=== PATIENT | male | born 1955 | race Caucasian/White ===

== ENCOUNTER 2020-04-25 10:24 | Inpatient (IN) | payer OTHER ==
[~2020-04-25] VITALS: Ht 182.9 cm; Wt 130.0 kg
[2020-04-25] MEDS ORDERED: TRAZ50TA66 PO (10:55)
[2020-04-25] MEDS ORDERED: OMEG-14 PO (10:55)
[2020-04-25] MEDS ORDERED: ISOS30TA8 PO (10:55)
[2020-04-25] MEDS ORDERED: EZET10TA70 PO (10:55)
[2020-04-25] MEDS ORDERED: PRAV40TA2 PO (10:55)
[2020-04-25] MEDS ORDERED: NITR0.4T28 SL (10:55)
[2020-04-25] MEDS ORDERED: RABE20TA18 PO (10:55)
[2020-04-25] MEDS ORDERED: HYDR25CA PO (10:55)
[2020-04-25] MEDS ORDERED: AMLO10TA4 PO (10:55)
[2020-04-25] MEDS ORDERED: LIRA0.6P2 SQ (10:55)
[2020-04-25] MEDS ORDERED: ASPI-496 PO (10:55)
[2020-04-25] MEDS ORDERED: MULT-658 PO (10:55)
[2020-04-25] MEDS ORDERED: ZALE10CA PO (10:55)
[2020-04-25] MEDS ORDERED: LISI1TAB20 PO (10:55)
[2020-04-25] MEDS ORDERED: METO-95 PO (10:55)
--- NOTE | 2020-04-25 10:55 | NUR ---
PT FROM [facility] FOR SUBLINGUAL ABSCESS THAT NEEDS TO BE DRAINED. PT REPORTS SEVER PAIN WITH SWALLOWING SO PT AVOIDS SWALLOWING AND HAS BEEN USING SUCTION TO CLEAR SECRETIONS. PT MEDICATED WITH ANTIBIOTICS AND STEROIDS SILK BRUSHER. PT HAS NOT BEEN TAKING HOME MEDICATIONS DUE TO PAIN FOR ONE DAY.
[2020-04-25] MEDS ORDERED: ONDANSETRON 2MG/ML, 2ML ONE ×2 (11:31→12:28)
[2020-04-25] MEDS ORDERED: METOPROLOL 1 MG/ML, 5ML ONE (11:31)
[2020-04-25] MEDS ORDERED: SUGAMMADEX 200 MG/2 ML IVPush ONE (11:31)
[2020-04-25] MEDS ORDERED: ROCURONIUM 10 MG/ML,10ML ONE (11:31)
[2020-04-25] MEDS ORDERED: PROPOFOL 10 MG/ML, 20ML ONE (11:31)
[2020-04-25] MEDS ORDERED: DEXAMETHASONE 4 MG/ML, 1ML ONE (11:31)
--- NOTE | 2020-04-25 12:24 | NUR ---
REPORT TO LEODAN GIVENS IN [facility].
[2020-04-25] MEDS ORDERED: MORPHINE SULFATE 4 MG/ML, 1ML ONE (12:29)
[2020-04-25] MEDS ORDERED: SODIUM CHLORIDE FLUSH 10ML SYR IVF PRN (12:30)
[2020-04-25] MEDS ORDERED: MORPHINE SULFATE 4 MG/ML, 1ML IVPush PRN (12:30)
[2020-04-25] MEDS ORDERED: ONDANSETRON 2MG/ML, 2ML IVPush PRN ×3 (12:30→16:00)
[2020-04-25] MEDS ORDERED: MIDAZOLAM 1 MG/ML, 2ML ONE (12:31)
[2020-04-25] MEDS ORDERED: FENTANYL PF 250 MCG/5ML ONE (12:32)
[2020-04-25] MEDS ORDERED: FLUORESCEIN SODIUM 500 MG/5 ML ONE (12:46)
[2020-04-25] MEDS ORDERED: EPINEPHRINE TOPICAL SOLN 1 MG/ML, 30ML ONE (12:46)
[2020-04-25] MEDS ORDERED: KETAMINE 10 MG/ML, 20ML ONE (12:52)
[2020-04-25] MEDS ORDERED: CHLORHEXIDINE 15 ML UDC MM ONE (13:00)
[2020-04-25] MEDS ORDERED: hydrALAzine 20 MG/ML, 1ML IV PRN (14:00)
[2020-04-25] MEDS ORDERED: LABETALOL 5MG/ML, 20ML IV PRN (14:00)
[2020-04-25] MEDS ORDERED: MIDAZOLAM 1 MG/ML, 2ML IV PRN (14:00)
[2020-04-25] MEDS ORDERED: MEPERIDINE/PF 25MG/0.5ML IVPush PRN (14:00)
[2020-04-25] MEDS ORDERED: ACETAMINOPHEN 325 MG TABLET PO PRN (14:00)
[2020-04-25] MEDS ORDERED: EPHEDRINE 50 MG/ML, 1ML IVPush PRN (14:00)
[2020-04-25] MEDS ORDERED: DIPHENHYDRAMINE 50 MG/ML, 1ML IVPush PRN (14:00)
[2020-04-25] MEDS ORDERED: PROMETHAZINE 25 MG/ML, 1ML IVPush PRN (14:00)
[2020-04-25] MEDS ORDERED: AMLODIPINE 5 MG TABLET PO ONE (14:00)
[2020-04-25] MEDS ORDERED: ALBUTEROL SULFATE 2.5 MG/3 ML NPPB PRN (14:00)
[2020-04-25] MEDS ORDERED: HYDROmorphone 1 MG/ML, 1ML INJ IVPush PRN (14:00)
[2020-04-25] MEDS ORDERED: DIAZEPAM 5 MG/ML, 2ML IVPush PRN (14:00)
[2020-04-25] MEDS ORDERED: METOPROLOL 1 MG/ML, 5ML IV PRN (14:00)
[2020-04-25] MEDS ORDERED: OXYcodone 5 MG/5 ML ORAL.SOL UDC PO PRN (14:00)
[2020-04-25] MEDS ORDERED: PROMETHAZINE 12.5 MG SUPP PR PRN (14:00)
[2020-04-25] MEDS ORDERED: FENTANYL PF 100 MCG/2ML ONE ×2 (14:04→14:45)
[2020-04-25] MEDS: FENTANYL PF 100 MCG/2ML IV PRN ×4 (14:08→14:57)
[2020-04-25] MEDS ORDERED: OXYcodone 5 MG/5 ML ORAL.SOL UDC ONE (14:28)
[2020-04-25] MEDS ORDERED: SODIUM CHLORIDE 0.9% 1,000 ML IV SCH (15:45)
[2020-04-25] MEDS ORDERED: DEXTROSE 50%, 50ML SYRINGE IVPush PRN (16:00)
[2020-04-25] MEDS ORDERED: ENALAPRILAT 1.25 MG/ML, 2ML IVPush SCH (16:00)
[2020-04-25] MEDS ORDERED: DEXTROSE 4 GM TAB.CHEW PO PRN (16:00)
[2020-04-25] MEDS: INSULIN LISPRO 100 UNITS/ML, PEN SQ-INSULIN SCH ×2 (16:00→21:00)
[2020-04-25] MEDS ORDERED: morphine SULFATE 10 MG/ML, 1ML IVPush PRN (16:00)
[2020-04-25] MEDS ORDERED: GLUCAGON 1 MG IM PRN (16:00)
[2020-04-25] MEDS ORDERED: BISACODYL 10 MG SUPP PR PRN (18:30)
[2020-04-25] MEDS ORDERED: LACTULOSE 20 GM/30 ML UDC PO PRN (18:30)
[2020-04-25] MEDS ORDERED: OXYcodone IR 5MG TABLET PO PRN (18:30)
[2020-04-25] MEDS ORDERED: ENALAPRILAT 1.25 MG/ML, 2ML IVPush PRN (18:30)
[2020-04-25] MEDS ORDERED: TRAZODONE 50MG TABLET PO PRN (18:30)
[2020-04-25] MEDS ORDERED: HYDROXYZINE PAMOATE 25MG CAP PO PRN (18:30)
[2020-04-25] MEDS: SODIUM CHLORIDE FLUSH 10ML SYR IVF SCH (20:23)
[2020-04-25] MEDS: DEXAMETHASONE 4 MG/ML, 1ML IVPush SCH (20:23)
[2020-04-25] MEDS: AMPICILLIN/SULBACTAM 3 GM in SODIUM CHLORIDE 0.9% 100 ML IV SCH (20:23)
[2020-04-25] MEDS ORDERED: SENNA/DOCUSATE TABLET PO SCH (21:00)
[2020-04-25] MEDS ORDERED: PRAVASTATIN 40 MG TABLET PO SCH (21:00)
[2020-04-25 21:23] VITALS: BP 125/77
[2020-04-25] MEDS ORDERED: PANTOPRAZOLE 20MG TABLET PO ONE (22:00)
[2020-04-26 01:11] VITALS: BP 120/70
[2020-04-26] MEDS ORDERED: DEXAMETHASONE 4 MG/ML, 1ML ONE (02:44)
[2020-04-26] MEDS: AMPICILLIN/SULBACTAM 3 GM in SODIUM CHLORIDE 0.9% 100 ML IV SCH ×2 (02:48→08:41)
[2020-04-26] MEDS: DEXAMETHASONE 4 MG/ML, 1ML IVPush SCH (02:48)
[2020-04-26 04:25] VITALS: BP 130/75
[2020-04-26] MEDS ORDERED: PANTOPRAZOLE 40MG TABLET PO SCH (06:00)
[2020-04-26 06:34] LABS: BASOPHILS # (AUTO) 0.03 x10^3/uL (0-0.1); BASOPHILS % (AUTO) 0 % (0-1); EOSINOPHILS % (AUTO) 0 % (1-7); LYMPHOCYTES # (AUTO) 0.67 x10^3/uL (1-3.4); LYMPHOCYTES % (AUTO) 5 % (22-44); MD NO; MEAN CORPUSCULAR HGB CONC 32.6 g/dL (33.2-36.2); MEAN CORPUSCULAR VOLUME 85.9 fL (81-97); MEAN PLATELET VOLUME 8.7 fL (7.4-10.4); MONOCYTES # (AUTO) 0.14 x10^3/uL (0.2-0.8); MONOCYTES % (AUTO) 1 % (2-9); NEUTROPHILS # (AUTO) 11.99 x10^3/uL (1.8-6.8); NEUTROPHILS % (AUTO) 93 % (42-75); PLATELET COUNT 183 x10^3/uL (130-400); RED BLOOD COUNT 4.92 x10^6/uL (4.38-5.82); RED CELL DISTRIBUTION WIDTH 16.3 % (9.4-14.8)
[2020-04-26 06:43] LABS: ALANINE AMINOTRANSFERASE 24 U/L (12-78); ALBUMIN 2.9 g/dL (3.4-5.0); ANION GAP 9 mmol/L (5-15); CALCIUM 8.2 mg/dL (8.5-10.1); CHLORIDE 108 mmol/L (98-107); CREATININE 0.84 mg/dL (0.7-1.3)
[2020-04-26 06:46] LABS: ALKALINE PHOSPHATASE 57 U/L (45-117); BILIRUBIN,TOTAL 0.5 mg/dL (0.2-1.0); TOTAL PROTEIN 7.3 g/dL (6.4-8.2)
[2020-04-26 06:58] VITALS: BP 129/71
[2020-04-26] MEDS: INSULIN LISPRO 100 UNITS/ML, PEN SQ-INSULIN SCH ×2 (07:00→11:00)
[2020-04-26] MEDS: SODIUM CHLORIDE FLUSH 10ML SYR IVF SCH (08:41)
[2020-04-26] MEDS ORDERED: EZETIMIBE 10 MG TABLET PO SCH (09:00)
[2020-04-26] MEDS ORDERED: DOCUSATE 100 MG CAPSULE PO SCH (09:00)
[2020-04-26] MEDS ORDERED: METOPROLOL SUCCINATE 100 MG TAB.ER.24H PO SCH (09:00)
[2020-04-26] MEDS ORDERED: HYDROCHLOROTHIAZIDE 25 MG TABLET PO SCH (09:00)
[2020-04-26] MEDS ORDERED: ISOSORBIDE MONONITRATE ER 30 MG TABLET PO SCH (09:00)
[2020-04-26] MEDS ORDERED: LISINOPRIL 20 MG TABLET PO SCH (09:00)
[2020-04-26] MEDS ORDERED: AMLODIPINE 10 MG TAB PO SCH (09:00)
[2020-04-26] MEDS ORDERED: AMOX1TAB64 PO (12:43)
[2020-04-26 13:57] VITALS: BP 105/55
[2020-04-26] MEDS ORDERED: SODIUM CHLORIDE 0.9% 1,000 ML IV SCH (15:45)
== END 2020-04-26 14:25 | disposition home or self-care (01) | DRG 158 ==
LOC: ED 11:09 → EDIP 12:23 → 4NE 15:25 → DCLOUNGE 04-26 14:11
PROVIDERS: ADMIT Internal Medicine; ATTEND Internal Medicine
PROC: 0CBM8ZX Excision of Pharynx, Via Natural or Artificial Opening Endoscopic, Diagnostic (ICD-10-PCS; principal; 2020-04-25 13:30)
DX: K14.0 Glossitis (principal); L02.11 Cutaneous abscess of neck; E11.9 Type 2 diabetes mellitus without complications; E78.5 Hyperlipidemia, unspecified; F41.1 Generalized anxiety disorder; I25.10 Atherosclerotic heart disease of native coronary artery without angina pectoris; M19.90 Unspecified osteoarthritis, unspecified site; R13.10 Dysphagia, unspecified; K21.9 Gastro-esophageal reflux disease without esophagitis; I25.2 Old myocardial infarction; Z79.84 Long term (current) use of oral hypoglycemic drugs; Z85.528 Personal history of other malignant neoplasm of kidney; Z90.5 Acquired absence of kidney; Z79.899 Other long term (current) drug therapy; Z88.8 Allergy status to other drugs, medicaments and biological substances; Z87.891 Personal history of nicotine dependence; Z03.818 Encounter for observation for suspected exposure to other biological agents ruled out
CPT/HCPCS: 36415; 80053; 82962; 85025; 87015; 87070; 87102; 87116; 87205; 87206; 87635; 88305; 99291; G0378; J0295; J1100; J2250; J2405; J2704; J3010; J2270